=== PATIENT | male | born 1985 | race Caucasian/White ===

== ENCOUNTER 2016-11-28 20:18 | Emergency (ER) | payer OTHER, MEDICAID ==
[2016-11-28 20:28] VITALS: RESP 16; O2SAT 96
[2016-11-28] MEDS ORDERED: IBUPROFEN 600 MG TAB PO ONE (20:56)
[2016-11-28] MEDS ORDERED: HYDROCOD/APAP 5/325 PREPACK#6 BTL TAKEHOME ONE (21:16)
--- NOTE | 2016-11-28 21:17 | EDPHY ---
H & P Stated Complaint: L ankle injury HPI/ROS: CHIEF COMPLAINT: Fall, left ankle pain HISTORY OF PRESENT ILLNESS: patient was at work this evening when he stepped awkwardly, rolling his left ankle into inversion. Sudden onset of pain and heard a snap sound. Pain is over the lateral malleolus. Radiates up into the distal gaines. Mild to moderate at rest. Moderate to severe when he attempts to bear weight. Unable to do so due to the pain. No numbness or tingling. No redness. No lacerations or abrasions. No pain in the ipsilateral foot, heel or proximal fibula. He did not fall or strike his head. No loss of conscious. No injury elsewhere no other associated complaints or modifying factors. REVIEW OF SYSTEMS: Ten systems reviewed and are negative unless otherwise noted in the HPI EXAMINATION General Appearance: Alert, no distress Head: normocephalic, atraumatic Eyes: Pupils equal and round, no conjunctival pallor or injection Respiratory: No dyspnea or retractions. No distress Cardiovascular: Pulses normal throughout. Symmetric Radial, DP and PT pulses at 2+. Brisk cap refill Neurological: A&O, sensory symmetric, strength symmetric in all limbs Skin: Warm and dry, no rash. No erythema or ecchymosis. Extremities: LLE: Tenderness to palpation of the lateral malleolus. Mild edema associated. No tenderness of the medial malleolus. No tenderness of the mid foot, heel or proximal fibula. Range of motion at rest is intact. Neurovascular intact distal to the injury. DIFFERENTIAL DIAGNOSES: Including but not limited to Acute fracture, strain, sprain, avulsion MDM: 9:15 p.m. left distal fibula fracture, closed, minimal displacement. No ipsilateral proximal fibular pain. No tibial pain. Range of motion is intact at rest and nonweightbearing. No abnormality distal to the fracture. He will be placed in a Evans boot, provided crutches, and instructions to follow up with orthopedics and his worker's comp provider. Patient is comfortable with this plan. He is instructed to be nonweightbearing on the extremity is painful or weight-bearing as tolerated. Discharged home neurovascular intact with boot and crutches. ED Precautions: Worsening pain. Erythema, edema, cyanosis, pallor, paresthesia or anesthesia. SUPERVISION: This patient was independently evaluated without the aide of supervising physician. Source: Patient Exam Limitations: No limitations - Personal History Current Tetanus/Diphtheria Vaccine: Yes - Medical/Surgical History Hx Asthma: No Hx Chronic Respiratory Disease: No Hx Diabetes: No Hx Cardiac Disease: No Hx Renal Disease: No Hx Cirrhosis: No Hx Alcoholism: No Hx HIV/AIDS: No Hx Splenectomy or Spleen Trauma: No Other PMH: PMHx: GOUT, slipped disc. PSHx: liver biopsy - Social History Smoking Status: Never smoked Constitutional: Initial Vital Signs Temperature (C) 98.1 F 11/28/16 20:25 Heart Rate 90 11/28/16 20:25 Respiratory Rate 16 11/28/16 20:25 Blood Pressure 138/70 H 11/28/16 20:25 O2 Sat (%) 96 11/28/16 20:25 O2 Delivery Mode Room Air Allergies/Adverse Reactions: No Known Allergies Allergy (Unverified 02/20/16 14:18) Home Medications: Medication Instructions Recorded Hydrocodone/APAP 5/325 [[place] 1 - 2 tab PO Q4H PRN #10 tab 11/28/16 5/325 (*)] Medical Decision Making - Data Points Medications Given: Discontinued Medications Ibuprofen (Motrin) 600 mg PO EDNOW ONE Stop: 11/28/16 20:57 Last Admin: 11/28/16 21:02 Dose: 600 mg Departure - Departure Disposition: Home, Routine, Self-Care Clinical Impression: Fracture of distal fibula Qualifiers: Encounter type: initial encounter Fracture type: closed Fracture morphology: unspecified fracture morphology Laterality: left Qualified Code(s): S82.832A - Other fracture of upper and lower end of left fibula, initial encounter for closed fracture Ankle sprain Qualifiers: Encounter type: initial encounter Involved ligament of ankle: unspecified ligament Laterality: left Qualified Code(s): S93.402A - Sprain of unspecified ligament of left ankle, initial encounter Condition: Good Instructions: Hydrocodone/Acetaminophen (By mouth), Ankle Fracture (ED), Ankle Sprain (ED) Additional Instructions: Follow-up with worker's Comp Clinic as well as Orthopedics for definitive care. Weightbearing as tolerated in the boot and with crutches. Nonweightbearing if painful return to the ER for worsening pain, redness, swelling, numbness or tingling Referrals: Luis Alberto Augustin MD [Medical Doctor] - As per Instructions Stand Alone Forms: Work Excuse Prescriptions: Hydrocodone/APAP 5/325 [[place] 5/325 (*)] 1 - 2 tab PO Q4H PRN #10 tab PRN Reason: Pain, Moderate
[2016-11-28 22:09] VITALS: BP 135/73; PULSE 78; TEMP 97.7
== END 2016-11-28 22:04 | disposition home or self-care (01) ==
DX: S82.832A Other fracture of upper and lower end of left fibula, initial encounter for closed fracture (principal); S93.402A Sprain of unspecified ligament of left ankle, initial encounter; X58.XXXA Exposure to other specified factors, initial encounter; Y92.69 Other specified industrial and construction area as the place of occurrence of the external cause; Y99.0 Civilian activity done for income or pay; Y93.89 Activity, other specified